=== PATIENT | female | born 1950 | race Caucasian/White ===

== ENCOUNTER → 2016-07-20 | Outpatient (CLI) | payer OTHER ==
[~2016-07-20] MED LIST: AUGMENTIN 875 M1 TAB PO; CLARITIN10 MG PO; COLACE PO; EVISTA60 MG PO; FOSAMAX70 MG PO; IRON324 M1 PO; LISINOPRIL/HCTZ1 TA2 PO; Lovenox40 MG/0.4 SC; METFORMIN HCL500 MG PO; PROVENTIL0.09 MG/AC IH; SERTRALINE HCL50 MG PO; SIMVASTATIN40 MG PO; SPIRIVA -- 3018 MCG INH; TRAMADOL HCL50 MG PO
[2016-07-20 12:26] LABS: BUN 12 mg/dl (7-24); CARBON DIOXIDE 30 mmol/L (21-32); CHLORIDE 104 mmol/L (98-107); CHOLESTEROL 166 mg/dL (<200); CPK 46 U/L (26-192); EST GLOM FILT AFRICAN AMERICAN > 60 ml/min; GLUCOSE 115 mg/dL (65-99); HDL CHOLESTEROL 72 mg/dl (40-60); LDL CHOLESTEROL 68 mg/dL (9-159); POTASSIUM 3.5 mmol/L (3.5-5.1); SODIUM 141 mmol/L (136-145); TRIGLYCERIDES 129 mg/dl (<150); VLDL CHOLESTEROL 26 mg/dL (6-40)
[2016-07-20 12:32] LABS: THYROID STIM HORMONE (HS) 0.764 uIU/ml (0.358-4.75)
[2016-07-20 13:00] LABS: HEMOGLOBIN A1c 6.6 % (4.8-5.6)
[2016-07-21 10:06] LABS: MICRO ALBUMIN/CRE RATIO 10.8 (0.0-30.0)
== END | disposition home or self-care (01) ==
LOC: LAB 11:27
PROVIDERS: Family Medicine
DX: E11.9 Type 2 diabetes mellitus without complications (principal); E78.00 Pure hypercholesterolemia, unspecified

== ENCOUNTER 2016-10-17 12:49 | Emergency (ER) | payer OTHER ==
[~2016-10-17] VITALS: Ht 165.1 cm; Wt 70.3 kg
[2016-10-17 13:30] LABS: BASO # 0.1 10*3/uL (0.0-0.1); BASO % 0.6 % (0.0-1.0); EOS # 0.2 10*3/uL (0.0-0.4); EOS % 2.7 % (1.0-4.0); HEMATOCRIT 38.8 % (37.0-47.0); HEMOGLOBIN 12.4 g/dl (12.0-16.0); LYMPH # 2.6 10*3/uL (1.3-4.4); LYMPH % 29.2 % (27.0-41.0); MEAN CORPUSCULAR HGB 25.9 pg (27.0-31.0); MEAN PLATELET VOLUME 10.6 fl (9.6-12.3); MONO # 0.5 10*3/uL (0.1-1.0); MONO % 5.5 % (3.0-9.0); NEUT # 5.5 10*3/uL (2.3-7.9); NEUT % 61.8 % (47.0-73.0); PLATELET COUNT AUTOMATED 256 10*3/uL (130-400); RED BLOOD COUNT 4.79 10*6/uL (4.10-5.10); RED CELL DISTRI WIDTH 15.4 % (0-14.5); WHITE BLOOD COUNT 8.9 10*3/uL (4.8-10.8)
[2016-10-17 13:39] LABS: PROTHROMBIN TIME 10.1 SECONDS (9.0-12.4)
[2016-10-17 13:46] LABS: ALKALINE PHOSPHATASE 78 U/L (45-117); BILIRUBIN, TOTAL 0.4 mg/dl (0.2-1.0); BUN 16 mg/dl (7-24); C-REACTIVE PROTEIN 0.66 MG/DL (0-0.3); CARBON DIOXIDE 25 mmol/L (21-32); CHLORIDE 103 mmol/L (98-107); CPK 58 U/L (26-192); EST GLOM FILT AFRICAN AMERICAN > 60 ml/min; GLUCOSE 87 mg/dL (65-99); MAGNESIUM 2.2 mg/dL (1.5-2.1); POTASSIUM 3.4 mmol/L (3.5-5.1); SGOT/AST 15 IU/L (3-35); SGPT/ALT 20 U/L (12-78); SODIUM 140 mmol/L (136-145); TOTAL PROTEIN 7.8 gm/dL (6.4-8.2)
[2016-10-17 13:48] LABS: CKMB < 0.5 ng/ml (0.5-3.6); TROPONIN I < 0.015 ng/ml (<0.045)
[2016-10-17] MEDS ORDERED: PREDNISONE10 MG PO (14:54)
== END 2016-10-17 14:58 | disposition home or self-care (01) ==
LOC: ED 12:49
PROVIDERS: Emergency Medicine
DX: G51.0 Bell's palsy (principal); H57.8 Other specified disorders of eye and adnexa; I10 Essential (primary) hypertension; Z88.6 Allergy status to analgesic agent; Z79.899 Other long term (current) drug therapy

== ENCOUNTER → 2017-01-26 | Outpatient (CLI) | payer OTHER ==
[~2017-01-26] MED LIST changes: +PREDNISONE10 MG PO
[2017-01-26 07:59] LABS: BUN 14 mg/dl (7-24); CHLORIDE 106 mmol/L (98-107); CHOLESTEROL 187 mg/dL (<200); CPK 72 U/L (26-192); CREATININE 0.76 mg/dL (0.55-1.02); HDL CHOLESTEROL 64 mg/dl (40-60); LDL CHOLESTEROL 94 mg/dL (9-159); POTASSIUM 4.1 mmol/L (3.5-5.1); SODIUM 140 mmol/L (136-145); TRIGLYCERIDES 146 mg/dl (<150); VLDL CHOLESTEROL 29 mg/dL (6-40)
== END | disposition home or self-care (01) ==
LOC: LAB 07:18
PROVIDERS: Family Medicine
DX: E78.00 Pure hypercholesterolemia, unspecified (principal); E11.9 Type 2 diabetes mellitus without complications

== ENCOUNTER → 2017-02-11 | Outpatient (CLI) | payer OTHER | END | disposition home or self-care (01) | LOC: MAMMO 02:52 | DX: Z12.31 Encounter for screening mammogram for malignant neoplasm of breast (principal) ==

== ENCOUNTER → 2017-03-26 | Day surgery (SDC) | payer OTHER ==
[~2017-03-26] VITALS: Ht 165.1 cm; Wt 70.3 kg
[~2017-03-26] MED LIST changes: +ZOLOFT50 MG PO
--- NOTE | ~2017-03-26 | O ---
[place], [place] OPERATIVE NOTE NAME: DANIEL BECERRIL UNIT #: [id number] ROOM: DOCTOR: TIFFANIE FRANCOIS,ALEX BIRTHDATE: [birth year] DOS: PROCEDURE: Colonoscopy. INDICATIONS: Colon cancer screening. An informed consent was obtained from the patient after the indication of procedure, the alternatives and potential complications were explained to her. PROCEDURE MEDICATIONS: Sedation was administered by Anesthesiology Department. SCOPE USED: Olympus pediatric colonoscope variable stiffness GIF-180, depth of insertion was to the cecum, which was identified by the usual landmarks of appendiceal orifice, ileocecal valve and triangular fold, in addition to transillumination in the right lower quadrant. FINDINGS: After adequate sedation, the patient was placed in left lateral decubitus position. Rectal examination showed normal sphincter tone and no external hemorrhoids. Scope was introduced into the rectum and advanced to the cecum with slight difficulty due to looping in the left colon. The prep was adequate. Colon mucosa appeared normal with no evidence of polyps, diverticula or ulcerations. Retroflexed views in the rectum showed small internal hemorrhoids. The scope was then withdrawn after the rectum was decompressed. The patient tolerated the procedure well. IMPRESSION: 1. Normal colon mucosa. No polyps seen. 2. Small internal hemorrhoids. PLAN: There is no need for further GI workup at this time. A repeat screening colonoscopy is advised in 10 years. Office followup will be scheduled p.r.n. ALEX MORENO MD CM:OPRECORD:OPERATIVE NOTE 7 9 ALEX MORENO MD 03/26/17 0901 interface
[2017-03-26 07:02] VITALS: BP 149/57
[2017-03-26 08:08] VITALS: BP 106/50
[2017-03-26 08:20] VITALS: BP 109/56
[2017-03-26 08:36] VITALS: BP 130/65
== END | disposition home or self-care (01) ==
LOC: SDC 03-23 10:15
DX: Z12.11 Encounter for screening for malignant neoplasm of colon (principal); K64.8 Other hemorrhoids; Z88.5 Allergy status to narcotic agent; I10 Essential (primary) hypertension; E11.9 Type 2 diabetes mellitus without complications; J44.9 Chronic obstructive pulmonary disease, unspecified; E78.00 Pure hypercholesterolemia, unspecified; Z87.891 Personal history of nicotine dependence; Z90.49 Acquired absence of other specified parts of digestive tract; Z98.51 Tubal ligation status; Z82.49 Family history of ischemic heart disease and other diseases of the circulatory system; F32.9 Major depressive disorder, single episode, unspecified; Z79.84 Long term (current) use of oral hypoglycemic drugs; Z79.899 Other long term (current) drug therapy; Z98.890 Other specified postprocedural states
CPT/HCPCS: 00810; G0121

== ENCOUNTER → 2017-06-16 | Outpatient (CLI) | payer OTHER ==
[2017-06-16 08:03] LABS: BUN 21 mg/dl (7-24); CHLORIDE 101 mmol/L (98-107); CHOLESTEROL 167 mg/dL (<200); CPK 47 U/L (26-192); CREATININE 0.75 mg/dL (0.55-1.02); HDL CHOLESTEROL 59 mg/dl (40-60); LDL CHOLESTEROL 83 mg/dL (9-159); POTASSIUM 3.8 mmol/L (3.5-5.1); SODIUM 140 mmol/L (136-145); TRIGLYCERIDES 124 mg/dl (<150); VLDL CHOLESTEROL 25 mg/dL (6-40)
[2017-06-17 11:02] LABS: CREATININE,URINE 167.2 mg/dL (Not Estab.); MICRO ALBUMIN/CRE RATIO 8.6 (0.0-30.0)
== END | disposition home or self-care (01) ==
LOC: LAB 07:12
PROVIDERS: Family Medicine
DX: E78.00 Pure hypercholesterolemia, unspecified (principal); E11.9 Type 2 diabetes mellitus without complications

== ENCOUNTER → 2017-12-09 | Outpatient (CLI) | payer OTHER ==
[2017-12-09 08:05] LABS: BUN 17 mg/dl (7-24); CHLORIDE 107 mmol/L (98-107); POTASSIUM 4.1 mmol/L (3.5-5.1); SODIUM 143 mmol/L (136-145)
== END | disposition home or self-care (01) ==
LOC: LAB 07:17
PROVIDERS: Family Medicine
DX: E11.9 Type 2 diabetes mellitus without complications (principal)

== ENCOUNTER → 2018-05-26 | Outpatient (CLI) | payer OTHER | END | disposition home or self-care (01) | LOC: MAMMO 02:07 | DX: Z12.31 Encounter for screening mammogram for malignant neoplasm of breast (principal) ==